=== PATIENT | female | born 1985 | race Caucasian/White ===

== ENCOUNTER → 2018-05-29 | Outpatient (CLI) | payer OTHER ==
[~2018-05-29] VITALS: Ht 236.2 cm; Wt 113.4 kg
[~2018-05-29] MED LIST: CYCLOBENZAPRINE5 MG PO; DOXEPIN 10 MG C10 MG PO; FARXIGA10 MG PO; GEMFIBROZIL 60600 M1 PO; HALDOL 0.5 MG0.5 MG PO; LEVEMIR SUBQ; LYRICA 50 MG50 MG PO; NORCO 5-325 TA1 EACH PO; NOVOLOG100 UNIT/1 SUBQ; PROMETHAZINE12.5 M1 PO; ZESTRIL5 MG PO
[2018-05-29 10:11] VITALS: BP 138/78
--- NOTE | 2018-05-29 10:48 | NUR ---
Pain Clinic Assessment: 1. History of Osteoarthritis: Not Applicable History of Rheumatoid Arthritis: Not Applicable 2. Height: 5 ft. 33 in. 236.2 cm. Weight: 250.0 lb. oz. 113.400 kg. Patient's BMI: 20.3 3. Vital Signs: BP: 138/78 Pulse: 88 Resp: 18 Temp: 02 Sat: 97 ECG Mon: 4. Pain Intensity: 6 5. Fall Risk: Dizziness: N Needs help standing or walking: N Fallen in the last 3 months: N Fall risk comments: 6. Patient on Blood Thinner: None 7. History of Hypertension: Y 8. Opioid Therapy greater than 6 weeks: N Opiate Contract Signed: 9. Risk Assessment Tool Provided: LOW RISK 06/10 10. Functional Assessment Tool: 11. Recreational Drug Use: Current within past 3 mos Drug Type: MARIJUANA Tobacco Use: Current Every Day Smoker Tobacco Type: Cigarettes Amount or Packs/day: 1 How Many Years: 13 Alcohol Use: No Frequency: Quant:
--- NOTE | 2018-06-05 07:34 | HPC ---
[facility] [address] [place] [address] PAIN MANAGEMENT CONSULTATION Name: SHANNON JONES [facility] [id number] Admission: 05/29/18 ������������������ Attend Phys: Anupam Gilbert DO Discharge: ������������������ Date of : 89 Report #: [id number] THIS REPORT FOR: //name// CC: FAM unknown Anupam Godfrey DATE OF SERVICE: 05/29/2018 REFERRING PHYSICIAN: Dr. Suhail Alcala. PRIMARY CARE PHYSICIAN: Dr. Jacqueline Godfrey with [facility]. CHIEF COMPLAINT: Neck pain and bilateral upper extremity pain with paresthesias. HISTORY OF PRESENT ILLNESS: As you know, the patient is a 32-year-old female who reports acute onset of neck pain and bilateral upper extremity pain with paresthesias began in April or May. She states no injury and no trauma that may have led to symptom occurrence. She sought evaluation through her neurosurgeon, Dr. Suhail Alcala who had the patient undergo imaging of the cervical spine. The findings showed mild broad-based posterior C5-C6 disk bulge without foraminal compromise or spinal cord impingement. Spinal cord is normal in size and configuration throughout the cervical region. She was referred to our clinic to discuss treatment options as she was determined to be a nonsurgical candidate. The patient indicates pain is constant and describes the pain as burning and pulling. Places current pain score 6/10, daily average at 8/10, worst pain has been is "11/10." The patient states that lying down exacerbates symptoms, medications "barely" improve her pain. She has been referred to our service by her neurosurgeon to discuss treatment options for suspected cervical radiculopathy. PAST MEDICAL HISTORY: 1. Diabetes mellitus type 2. 2. Hypertension. 3. Multiple emotional problems. 4. Gastroesophageal reflux disease. 5. Chronic insomnia. PAST SURGICAL HISTORY: 1. Bilateral carpal tunnel release. 2. Lumbar spine surgery. [facility] [address] [place] [address] PAIN MANAGEMENT CONSULTATION Name: SHANNON JONES Jorge Luis Room #: REG [facility].#: [id number] Admission: 05/29/18 ������������������ Attend Phys: Anupam Gilbert DO Discharge: ������������������ Date of : [birth year] Report #: [id number] SOCIAL HISTORY: The patient smokes 1 pack tobacco per day, has done so for 13 years. Denies IV or illicit drug use. Denies any chronic alcohol use. She has never been employed. She is receiving disability income. She is unaccompanied today. REVIEW OF SYSTEMS: Positive for headaches, blurred vision, nausea, vomiting, frequent diarrhea, painful urination, nocturia, numbness and tingling sensations involving bilateral upper extremities, nervousness, depression, insomnia, diabetes mellitus type 2 and heat and cold intolerance. All other review of systems negative per 12-point review of systems other than those listed in history of present illness. Pain impact score 34/70 indicating moderate interference of daily activities secondary to pain. ALLERGIES: ARIPIPRAZOLE. CURRENT MEDICATIONS: 1. Gemfibrozil 600 mg twice a day. 2. Doxepin 10 mg once a day. 3. Lisinopril 5 mg once a day. 4. Allopurinol 0.5 mg once a day. 5. Promethazine 12.5 mg 3 times a day. 6. Pregabalin 50 mg twice a day. 7. Insulin 50 units before bedtime. 8. Cyclobenzaprine 5 mg t.i.d. p.r.n. 9. Sliding scale insulin. 10. Farxiga 10 mg once a day. 11. Hydrocodone/acetaminophen 5/325 one tab p.o. q. 6 hours p.r.n. for pain. IMAGING DATA: MRI of the cervical spine obtained on 05/08/2018 shows mild posterior disk bulge at C5-C6. No neural root involvement. No spinal cord effacement. Remaining MRI cervical spine normal. PQRS: The patient has no known osteoarthritis. No rheumatoid arthritis. She is placing pain score 6/10. She is not a fall risk, has not had a fall in the last 3 months. She is not on blood thinners. She is treated for hypertension. She is on opioids but not greater than 6 weeks. She is at moderate risk for opioid addiction and pain impact score 36/70 indicating moderate interference of daily activities secondary to pain. PHYSICAL EXAMINATION: VITAL SIGNS: Blood pressure 130/78, pulse 88 and respiratory rate 18 and unlabored. The patient is 97% on room air. Height 5 feet 3 inches tall, weight 250 pounds and BMI calculated 44.28. GENERAL: Well-developed, well-nourished, well-hydrated, class 3, morbidly obese 32-year-old female, smells strongly of tobacco smoke. She appears much older [facility] [address] [place] [address] PAIN MANAGEMENT CONSULTATION Name: SHANNON JONES Room #: [facility] Sonu#: [id number] Admission: 05/29/18 ������������������ Attend Phys: Anupam Gilbert DO Discharge: ������������������ Date of : 89 Report #: [id number] than stated age, placing current pain score at 6/10. HEENT: Normocephalic and atraumatic. Pupils equal, round and reactive to light. Extraocular muscles are intact. Sclerae nonicteric, without injection, noted hirsutism. LUNGS: Clear with prolonged expiratory phase. CARDIOVASCULAR: Regular. No appreciable gallop or rub. ABDOMEN: Soft and obese. Active bowel sounds. EXTREMITIES: Show no clubbing and no cyanosis. MUSCULOSKELETAL: Upper extremity strength is equal and symmetrical 5/5. She is intact to light touch from C5-T1 dermatomes. The patient has normal reflexes at biceps, brachialis and triceps 2+/4. Muscle bulk and tone is equal and symmetrical in upper extremities. Spurling's test is negative. Cervical provocation testing is met with slight decrease of pain, right neck, no radiation of symptoms beyond. ASSESSMENT: 1. Cervicalgia. 2. Mildly displaced cervical intervertebral disk with suspected radiculopathy. 3. Myofascial pain. PLAN: 1. Based on today's physical exam and history the patient has provided, the description the patient uses in regards to pain as well as location of symptoms, likely source of the patient's pain is a possible cervical radiculopathy. The findings of the patient's MRI are relatively normal, mild disk bulge at C5-C6 without effacement of the nerve roots or the ventral thecal sac, which would indicate that there is no significant neuropathic component to the patient's symptoms. Her distribution of symptoms would indicate a central canal stenosis problem, though the MRI shows no findings concerning for this issue. The patient sought evaluation through her neurosurgeon who indicated she is not a surgical candidate. She was subsequently referred to our service to undergo a cervical epidural injection. We discussed this with the patient today. We also discussed the following treatment options that are available to address suspected cervical radiculopathy. We discussed physical therapy, stretching exercises and traction techniques. This would be a conservative an effective way to treat her symptoms given the lack of any pathology in the cervical region based on MRI. We also discussed medication management for which the patient was on Lyrica, but at much too lower dose, this could be escalated to as high as 450 mg per day. The prescribing physician would have to watch for side effects of somnolence, decreased mental acuity, disorientation, confusion with its use. We discussed the requested cervical epidural injection for which the patient has indicated she would not be willing to undergo. We also discussed return to discuss her case further with neurosurgery. After reviewing risks and benefits of all proposed treatment options, the patient chose to have adjustments [place] [address] PAIN MANAGEMENT CONSULTATION Name: KARENSHANNON Kang Room #: REG [facility] Ascencio#: [id number] Admission: 05/29/18 ������������������ Attend Phys: Anupam Gilbert DO Discharge: ������������������ Date of : 89 Report #: [id number] her PCP clinic. 2. Recommend that the patient escalate her dose of Lyrica at present, she reports she was previously on pregabalin 50 mg twice a day and this would need to be rapidly escalated and we would recommend increasing from 50 mg b.i.d. to 50 mg in morning and 100 at night for 7 nights, then increasing to 50 mg in morning and 150 at night for 7 nights, then increase to 100 mg in the morning and 150 mg at night for 7 days and then increase to 150 mg b.i.d. This should be the time where you will see improvement in symptoms or potential side effects. We will defer to the primary team for escalation of these medications. One could initiate the patient on a neuropathic medication in the form of gabapentin. If one the primary care team wishes to do so, we would recommend starting at 300 mg dose for 3 nights, then increase to 600 mg for 3 nights, then 900 mg for 3 nights, then begin increasing daily doses in the morning one additional 300 mg tablet every 3 days to reach 900 mg b.i.d. and no side effects of somnolence, decreased mental acuity, disorientation, confusion, then escalate dose to 900 mg t.i.d. utilizing a similar escalation protocol. This would only be initiated if Lyrica is ineffective or there is suboptimal coverage of Lyrica to escalate the patient dosing as indicated above. 3. We will be available to see the patient back in followup visit to undergo a cervical epidural injection. At present, the patient does not wish to undergo this procedure and wishes to trial a more conservative option. We have advised the patient of the risks and the benefits of a cervical epidural injection. These were provided to the patient today. She will consider this option but at present, she is unwilling to undergo such injections. 4. We wish to thank Dr. Alcala for the referral of the patient to our clinic. We will keep you apprised of her response to treatment if she does return to undergo a cervical epidural injection. We will be returning her care to her PCP for adjustments in the medication as indicated above. We will keep you apprised of any interventional treatments if they are performed and the response she has to those injections. Again, we wish to thank you for the opportunity to see the patient in consultation. 5. Please indicate that the dictation should also be sent to the primary care physician's office that is a Dr. Jacqueline Godfrey with [facility]. ��������������������������������������������� <ELECTRONICALLY SIGNED> ���������������������������������������� By: Anupam Gilbert DO ��������������������������������������������� 06/05/18 [id number] Anupam Gilbert DO /irma
== END ==
LOC: PAIN 06:50
DX: M50.21 Other cervical disc displacement, high cervical region (principal); E11.9 Type 2 diabetes mellitus without complications; I10 Essential (primary) hypertension; K21.9 Gastro-esophageal reflux disease without esophagitis; F51.04 Psychophysiologic insomnia; F17.210 Nicotine dependence, cigarettes, uncomplicated; Z88.1 Allergy status to other antibiotic agents; Z79.4 Long term (current) use of insulin; Z79.899 Other long term (current) drug therapy